=== PATIENT | male | born 1940 | race Two or more races ===

== ENCOUNTER 2019-02-18 08:46 | Inpatient (IN) | payer OTHER ==
[~2019-02-18] VITALS: Ht 177.8 cm; Wt 106.6 kg
[~2019-02-18 08:46] MED LIST: CRESTOR
[2019-02-18] MEDS ORDERED: ARICEPT5 MG (09:32)
[2019-02-18] MEDS ORDERED: ENALAPRIL MALE2.5 MG (09:33)
[2019-02-18] MEDS ORDERED: LIPITOR40 MG (09:33)
[2019-02-18] MEDS ORDERED: FORTAMET500 MG (09:34)
[2019-02-18] MEDS ORDERED: [UNRECOGNIZED DRUG - OTHER] (09:38)
[2019-02-18] MEDS ORDERED: DITROPAN XL5 MG PO (15:47)
== END 2019-02-28 09:37 | disposition expired | DRG 64 ==
LOC: ER 08:46 → MEDJ 11:47
PROVIDERS: ADMIT Internal Medicine Cardiovascular Disease
PROC: 4A033R1 Measurement of Arterial Saturation, Peripheral, Percutaneous Approach (ICD-10-PCS; principal; 2019-02-18)
PROC: BW28ZZZ Computerized Tomography (CT Scan) of Head (ICD-10-PCS; 2019-02-18)
PROC: B030ZZZ Magnetic Resonance Imaging (MRI) of Brain (ICD-10-PCS; 2019-02-18)
PROC: B246ZZZ Ultrasonography of Right and Left Heart (ICD-10-PCS; 2019-02-18)
PROC: B348ZZZ Ultrasonography of Bilateral Internal Carotid Arteries (ICD-10-PCS; 2019-02-18)
PROC: B345ZZZ Ultrasonography of Bilateral Common Carotid Arteries (ICD-10-PCS; 2019-02-18)
PROC: 02HV33Z Insertion of Infusion Device into Superior Vena Cava, Percutaneous Approach (ICD-10-PCS; 2019-02-20)
PROC: 0DH67UZ Insertion of Feeding Device into Stomach, Via Natural or Artificial Opening (ICD-10-PCS; 2019-02-21)
PROC: 3E0G76Z Introduction of Nutritional Substance into Upper GI, Via Natural or Artificial Opening (ICD-10-PCS; 2019-02-21)
PROC: 0DH63UZ Insertion of Feeding Device into Stomach, Percutaneous Approach (ICD-10-PCS; 2019-02-27)
PROC: 3E0G76Z Introduction of Nutritional Substance into Upper GI, Via Natural or Artificial Opening (ICD-10-PCS; 2019-02-27)
PROC: 4A12X4Z Monitoring of Cardiac Electrical Activity, External Approach (ICD-10-PCS; 2019-02-28)
PROC: 3E0F7GC Introduction of Other Therapeutic Substance into Respiratory Tract, Via Natural or Artificial Opening (ICD-10-PCS; 2019-02-28)
DX: I63.543 Cerebral infarction due to unspecified occlusion or stenosis of bilateral cerebellar arteries (principal); I63.233 Cerebral infarction due to unspecified occlusion or stenosis of bilateral carotid arteries; I63.22 Cerebral infarction due to unspecified occlusion or stenosis of basilar artery; J91.8 Pleural effusion in other conditions classified elsewhere; G30.8 Other Alzheimer's disease; F02.80 Dementia in other diseases classified elsewhere, unspecified severity, without behavioral disturbance, psychotic disturbance, mood disturbance, and anxiety; I69.328 Other speech and language deficits following cerebral infarction; E86.0 Dehydration; I69.320 Aphasia following cerebral infarction; R29.705 NIHSS score 5; I69.391 Dysphagia following cerebral infarction; R13.19 Other dysphagia; I46.9 Cardiac arrest, cause unspecified
CPT/HCPCS: 70551